=== PATIENT | male | born 1955 | race Caucasian/White ===

== ENCOUNTER → 2016-11-26 | Outpatient (CLI) | payer SELFPAY ==
--- NOTE | 2016-11-26 11:12 | CT ---
HISTORY: Screening, dyspnea Cardiac calcium scoring. Technique: Multiple axial images of the chest were obtained on a [address] from the aortic arch to the base of the heart with noncontrast prospective gating. AEC was utilized. Findings: A total calcium score of 190 is observed. The patient is between the 50 and 75th percentile for age and sex with definite, at least moderate, atherosclerotic plaque present and mild Coronary artery d isease highly likely with significant narrowings possible. There is thoracic spondylosis. There is a 4 mm left lower lobe pulmonary nodule along the major fiss ure which is likely postinflammatory but for which a 1 year follow up is recommended based on the [place] eischner [employer] criteria if the patient is high risk. IMPRESSION: Abnormal Coronary calcium score an incidental findings as above Reported By:
== END ==
LOC: RAD 09:05
PROVIDERS: ATTEND Internal Medicine Cardiovascular Disease
DX: Z13.6 Encounter for screening for cardiovascular disorders (principal)